=== PATIENT | male | born 1980 | race Caucasian/White ===

== ENCOUNTER 2024-12-01 16:11 | Outpatient (CLI) | payer OTHER, SELFPAY | END 2024-12-01 16:12 | disposition home or self-care (01) | PROVIDERS: Visit Provider Orthopaedic Surgery | DX: M10.9 Gout, unspecified (principal); M25.562 Pain in left knee | CPT/HCPCS: 80053; 84550; 86140; 86200; 86431; 87070; 87075; 87205; 89051; 89060 ==

== ENCOUNTER 2024-12-07 08:29 | Outpatient (CLI) | payer OTHER, SELFPAY | END 2024-12-07 08:30 | disposition home or self-care (01) | PROVIDERS: PCP Internal Medicine; Visit Provider Internal Medicine | DX: Z00.00 Encounter for general adult medical examination without abnormal findings (principal); R53.83 Other fatigue; Z13.6 Encounter for screening for cardiovascular disorders; Z12.5 Encounter for screening for malignant neoplasm of prostate | CPT/HCPCS: 80061; 84443; G0103 ==

== ENCOUNTER 2025-01-09 18:44 | Outpatient (CLI) | payer OTHER, SELFPAY ==
--- NOTE | 2025-01-09 19:00 | MR_ITS ---
[facility] [address] [facility] [address] Phone:?[phone] Fax:?[phone] Referring Physician Information: Zeb Nance M.D. [address] [address] Phone:?[phone] Fax:?[phone] Patient:Magdy Feliciano D.O.B:?1980 Sex:?Male Phone:?[phone] [facility] MRN:?[id number] Exam Date:?01/09/2025 EXAM: MRI of the LEFT SHOULDER, without contrast CLINICAL: Left shoulder injury. Evaluate for rotator cuff tear. COMPARISONS: None available. TECHNICAL: Multiplanar multisequence MRI of the left shoulder was obtained. SEDATION: None. CONTRAST: None. FINDINGS: Rotator cuff: Supraspinatus/Infraspinatus: There is mild to moderate tendinosis of the distal supraspinatus tendon. Moderate partial articular surface tearing involves the anterior distal supraspinatus tendon on coronal series 5 image 11 involving approximately 50% of the tendon thickness with mild partial interstitial and bursal surface tearing involving the remainder of the distal tendon. Very small ganglion cyst noted within the supraspinatus muscle about the myotendinous junction on sagittal series 9 image 13. Infraspinatus tendon and muscle appear unremarkable. Teres minor: No tendinosis, tear or atrophy. Subscapularis: No tendinosis, tear or atrophy. Bursae: Subacromial-subdeltoid: Minimal bursal fluid. Subcoracoid: No significant bursal fluid. Coracoacromial arch: Acromion morphology: Type II. No os acromiale. Acromiohumeral space: Mildly narrowed. Coracohumeral space: Within normal limits. Biceps tendon, long head: No tendinosis, tendon tear or displacement. Glenohumeral joint: No joint effusion. Articular cartilage: Evaluation is relatively limited. Suspect grade 3 chondral loss involving the superior glenoid and adjacent superomedial humeral head as visualized. Capsule: No evidence of capsular thickening or injury. Labrum: There is tearing of the superior labrum posterior to the biceps anchor as seen on coronal series 5 image 14-17. Remainder of the labrum appears intact as visualized on this nonarthrogram exam. No perilabral cyst identified. Bones: No suspicious marrow signal alteration, fracture or dislocation. Acromioclavicular joint: Mild changes of arthrosis. No AC joint injury/widening. IMPRESSION: 1. Mild to moderate tendinosis of the distal supraspinatus tendon. There is moderate partial articular surface tearing of the anterior distal supraspinatus tendon with mild partial tearing of the remainder of the distal supraspinatus tendon. 2. Tearing of the superior labrum. 3. Evaluation of the glenohumeral cartilage is limited. Suspect grade 3 chondral loss involving the superior glenoid and adjacent superomedial humeral head as visualized. 4. Mild AC joint arthrosis. JCZ Electronically signed on 01/10/2025 10:24:00 AM by Jeremy Mccoy D.O.
== END 2025-01-09 18:45 | disposition home or self-care (01) ==
LOC: MRI 18:44
PROVIDERS: PCP Internal Medicine; Visit Provider Orthopaedic Surgery
DX: M25.512 Pain in left shoulder (principal); S49.92XA Unspecified injury of left shoulder and upper arm, initial encounter; M75.102 Unspecified rotator cuff tear or rupture of left shoulder, not specified as traumatic; M19.012 Primary osteoarthritis, left shoulder
CPT/HCPCS: 73221

== ENCOUNTER 2025-01-19 10:18 | Outpatient (CLI) | payer OTHER, SELFPAY ==
--- NOTE | 2025-01-19 11:40 | P.ANES_ITS ---
Anesthesia Charges Start Date/Time Anesthesia Start Date: 01/19/25 Anesthesia Start Time: 11:07 Stop Date/Time Anesthesia Stop Date: 01/19/25 Anesthesia Stop Time: 11:39 Coding CPT Codes CPT Codes: JENNA LWR INTST NDSC NOS - 89297 ([id number]) P2 - PATIENT W/MILD SYST DISEASE, QK - MAGAZINE EDITOR 2-4 CNCRNT ANES PROC, QX - STEEL MANAGER SVC W/ MD MED DIRECTION
--- NOTE | 2025-01-19 11:40 | W.ANESCHARGE ---
Anesthesia Charges Start Date/Time Anesthesia Start Date: 01/19/25 Anesthesia Start Time: 11:07 Stop Date/Time Anesthesia Stop Date: 01/19/25 Anesthesia Stop Time: 11:39 Coding CPT Codes CPT Codes: JENNA LWR INTST NDSC NOS - 44015 ([id number]) P2 - PATIENT W/MILD SYST DISEASE, QK - EMT DRIVER 2-4 CNCRNT ANES PROC, QX - COSMETICS DEMONSTRATOR SVC W/ MD MED DIRECTION
--- NOTE | 2025-01-19 13:11 | P.ANES_ITS ---
Anesthesia Charges Start Date/Time Anesthesia Start Date: 01/19/25 Anesthesia Start Time: 11:07 Stop Date/Time Anesthesia Stop Date: 01/19/25 Anesthesia Stop Time: 11:39 Coding CPT Codes CPT Codes: JENNA LWR INTST NDSC NOS - 17057 ([id number]) P2 - PATIENT W/MILD SYST DISEASE, QK - MANAGER TECHNICAL TRAINING 2-4 CNCRNT ANES PROC, QX - EDUCATION TECHNICIAN SVC W/ MD MED DIRECTION
--- NOTE | 2025-01-19 13:11 | W.ANESCHARGE ---
Anesthesia Charges Start Date/Time Anesthesia Start Date: 01/19/25 Anesthesia Start Time: 11:07 Stop Date/Time Anesthesia Stop Date: 01/19/25 Anesthesia Stop Time: 11:39 Coding CPT Codes CPT Codes: JENNA LWR INTST NDSC NOS - 76225 ([id number]) P2 - PATIENT W/MILD SYST DISEASE, QK - WIRELESS STORE MANAGER 2-4 CNCRNT ANES PROC, QX - UPSTAIRS MAID SVC W/ MD MED DIRECTION
== END 2025-01-19 10:19 | disposition home or self-care (01) ==
LOC: OP CLINIC 10:21
PROVIDERS: PCP Internal Medicine; Visit Provider Surgery
DX: Z12.11 Encounter for screening for malignant neoplasm of colon (principal); Z83.719 Family history of colon polyps, unspecified; D12.0 Benign neoplasm of cecum; D12.2 Benign neoplasm of ascending colon; D12.5 Benign neoplasm of sigmoid colon; D12.8 Benign neoplasm of rectum
CPT/HCPCS: 00811; 00812; 45385; 88305; J2704

== ENCOUNTER 2025-01-30 16:12 | Outpatient (RCR) | payer OTHER, SELFPAY | END 2025-05-30 23:59 | disposition home or self-care (01) | PROVIDERS: PCP Internal Medicine; Visit Provider Orthopaedic Surgery | DX: M67.814 Other specified disorders of tendon, left shoulder (principal); Z51.89 Encounter for other specified aftercare | CPT/HCPCS: 97110; 97161 ==

== ENCOUNTER 2025-03-30 15:05 | Outpatient (CLI) | payer OTHER, SELFPAY | END 2025-03-30 15:06 | disposition home or self-care (01) | LOC: NFLDREF 04-13 01:24 | PROVIDERS: PCP Internal Medicine; Referring Provider Internal Medicine; Visit Provider Internal Medicine | DX: E78.5 Hyperlipidemia, unspecified (principal); R73.9 Hyperglycemia, unspecified; Z13.9 Encounter for screening, unspecified | CPT/HCPCS: 80053; 80061; 82043; 82570 ==

== ENCOUNTER 2025-06-11 11:04 | Emergency (ER) | payer OTHER, SELFPAY ==
[2025-06-11 11:07] VITALS: BP 122/72; PULSE 61; RESP 18; TEMP 37; O2SAT 96
--- NOTE | 2025-06-11 11:18 | ED.GENADULT ---
HPI - General Adult General Time Seen by Provider: 11:18 Date Seen: 06/11/25 Chief complaint: Extremity Pain/Injury, Upper Stated complaint: L wrist injury Time Seen by Provider: 06/11/25 11:07 Source: patient and RN notes reviewed Mode of arrival: ambulatory Limitations: no limitations History of Present Illness HPI narrative: This 44-year-old male is coming in with left wrist pain over the last week. He just reached under the car seat to grab something, started with pain. He has not had a history of definite injury like previous sprain or fracture. There this for quite some time where he would move her do something with the risk, would have pain for couple days. He has a neoprene wrap that go home and around the wrist that he uses, does seem to help although it made his thumb go numb this wheezing in the hand. There is some mild swelling. He has tried Tylenol and ibuprofen with out improvement. He does go to the [place], has had a history of gout in his feet, his uric acid has been elevated. He has colchicine at home to take for gout, did take a dose this morning. He admits that there has not been the level of swelling and redness in the wrist joint that he has had in his feet. This does not feel necessarily like gout. His believes there is little swelling in the wrist. Any movement of the wrist precipitates pain. He has had no fevers or chills. He does have allopurinol at home but has not started it. Related Data Home Medications ?Medication ?Instructions ?Recorded ?Confirmed No Known Home Medications 06/11/25 06/11/25 Allergies Allergy/AdvReac Type Severity Reaction Status Date / Time No Known Drug Allergies Allergy Verified 06/11/25 11:13 Review of Systems Narrative: As per HPI. [facility] Medical History Cryptorchidism ?Q53.9 - Undescended testicle, unspecified (ICD-10) Elevated blood sugar ?R73.9 - Hyperglycemia, unspecified (ICD-10) Gout ?M10.9 - Gout, unspecified (ICD-10) Screening due ?Z13.9 - Encounter for screening, unspecified (ICD-10) Fatigue ?R53.83 - Other fatigue (ICD-10) Surgical History H/O vasectomy ?Z98.52 - Vasectomy status (ICD-10) Social History What is your current living situation?: I presently have a place to live Problems where you live: no known problems In the past 12 months, utilities in danger of being shut off: no In past 12 months, lack of transportation kept you from medical appts, meetings, work, or getting things needed for daily living: no In the past 12 mos, have been you worried that your food would run out before you had money to buy more?: never true In the past 12 mos, the food you bought just didn't last and you didn't have money to buy more?: never true How often does anyone, including family, friends and others, physically hurt you: never How often does anyone, including family, friends and others, insult or talk down to you: never How often does anyone, including family, friends and others, threaten you with harm: never How often does anyone, including family, friends and others, scream or curse at you: never Exam Const: Vital Signs, click to edit/add: Vital Signs - 24 hr 06/11/25 11:07 Temperature 98.6 F Pulse Rate [Right Pulse Oximeter] 61 Respiratory Rate 18 Blood Pressure [Ri ght Upper Arm] 122/72 Pulse Oximetry 96 Oxygen Delivery Me thod Room Air This 44-year-old male is alert, interactive, no apparent distress. He has an ice pack on his left wrist. On inspection, there is some mild generalized swelling over the left wrist when I compare to the right. He has some tenderness globally in the center of the left wrist both on the dorsal and the ventral surface. He has a good radial pulse. Range of motion with flexion, extension, ulnar and radial deviation cause discomfort, he has limited range of motion. The joint is not warm, there is no erythema. He can fully flex and extend his fingers but it does cause some pain into the wrist area. There is no swelling of the fingers or the hand. Normal capillary refill and warmth of the hand and fingers, normal sensation. He has no pain about the elbow or forearm. Documenting provider has reviewed patient's vital signs: yes Course Course ED Course: This 44-year-old male is having left wrist pain, does have a history of gout. He and his both agree that the wrist just does not seem to have the swelling and erythema an inflammatory response I would expect with gout. I do think it is reasonable to do the colchicine. We are going to x-ray just to look at underlying architecture. I did discuss cartilaginous tears within the wrist which I do wonder if he might have. We will x-ray, try a cock-up wrist splint for comfort. I do not think we need to recheck blood work given the history he has given me. He would like to follow up with Orthopedics locally if needed, will give him the number to our orthopedist on discharge. Reevaluation(s) Time of Reevaluation #1: 12:24 Reevaluation #1: Did review with patient that his x-ray images appear normal on the wrist. We are going to try a cock-up wrist splint here to see if it provides him with comfort. We did discuss pain management at bedtime, hopefully with the wrist splint he will have improved pain control as this will stabilize the wrist. We did discuss using something at bedtime to help with sleep until he can follow up with Orthopedics. He has tolerated Percocet and Vicodin. Did discuss use of oxycodone as I like the oxycodone so that people can still use Tylenol and ibuprofen without any concerns. If using Percocet or Vicodin, need to observe limits of Tylenol and I feel it is much easier to potentially overdose on the Tylenol. Vital Signs Vital signs: Initial Vital Signs Temperature 98.6 F 06/11/25 11:07 Temperature Source Temporal Artery Scan 06/11/25 11:07 Pulse Rate 61 06/11/25 11:07 Pulse Rhythm Regular 06/11/25 11:07 Pulse Strength 3+ Normal 06/11/25 11:07 Respiratory Rate 18 06/11/25 11:07 Blood Pressure 122/72 06/11/25 11:07 Blood Pressure Mean 88 06/11/25 11:07 Blood Pressure Position Sitting 06/11/25 11:07 Pulse Oximetry 96 06/11/25 11:07 Oxygen Delivery Method Room Air 06/11/25 11:07 Vital Signs Temperature 98.6 F 06/11/25 11:07 Pulse Rate 61 06/11/25 11:07 Respiratory Rate 18 06/11/25 11:07 Blood Pressure 122/72 06/11/25 11:07 Pulse Oximetry 96 06/11/25 11:07 Oxygen Delivery Method Room Air 06/11/25 11:07 Temperature 98.6 F 06/11/25 11:07 Pulse Rate 61 06/11/25 11:07 Respiratory Rate 18 06/11/25 11:07 Blood Pressure 122/72 06/11/25 11:07 Pulse Oximetry 96 06/11/25 11:07 Oxygen Delivery Method Room Air 06/11/25 11:07 Medical Decision Making Imaging Data XR left wrist: Attestation: I have reviewed the pertinent imaging results. My impression: Did visualize his wrist x-rays, do not appreciate any acute pathology. Radiology reading reviewed. Radiologist's impression: Patient: KATHRIN CRISOSTOMO Facility:?[facility] Patient ID:?[id number] Site Patient ID:?[id number]. Site :?1980 Study:?XRay-Extremity Left 3V-06/11/2025 11:39:37 AM Ordering Physician:?Swati Huertas Final Report: INDICATION: Wrist pain, no injury TECHNIQUE: Three views left wrist COMPARISON: None. FINDINGS: No acute fracture or dislocation. Joint spaces are maintained. No erosions or chondrocalcinosis. IMPRESSION: Normal radiographs. Dictated by Jon Bettencourt MD @ 06/11/2025 12:06:54 PM (Electronic Signature) Discharge Plan Discharge Clinical Impression: Acute wrist pain Qualifiers: Laterality: left Qualified Code(s): M25.532 - Pain in left wrist Patient Disposition: Home, Self-Care Condition: Stable Instructions: Wrist Injury (ED) Additional Instructions: We do not have a general wrist pain handout, have provided you a wrist injury handout. I would use the wrist splint for immobilization and stabilization of this wrist. Can use Tylenol 1000 mg 3 times a day baseline for pain, supplement with ibuprofen 600 mg up to 4 times a day as needed for extra pain control. Have written for oxycodone to be used at bedtime or if really needed for severe pain during the day. You cannot drive or operate machinery within 6-8 hours of taking this medicine. This medicine can also be constipating, may need to use MiraLax and or senna well on the oxycodone to prevent this. Have written for oxycodone from [facility], 5 mg at bedtime as needed, 4 tablets provided. Please call the orthopedic office tomorrow morning to get scheduled for follow-up. The phone number is [phone]. I would have you take the colchicine as normally prescribed for gout, if there is no improvement within 24 hours, I really do believe that this is definitely unlikely to be gout in that circumstance. If the wrist pain totally clears up with use of the colchicine, may not need further evaluation with Orthopedics as it certainly could be gout if the colchicine improves symptoms. I do wonder if you could have a cartilaginous tear with in the wrist bones, this can be difficult to diagnose and often presents with recurrent wrist pain. Thus, my recommendation for follow-up with orthopedics. Activity Level: Activity as Tolerated Prescriptions: No Action No Known Home Medications Follow Up/Referrals: Brannon Azar MD [Primary Care Provider, Internal Medicine] Stand Alone Forms: [address] [employer] Info Instructions
--- NOTE | 2025-06-11 11:27 | CRLHL7_ITS ---
For Patients: As a result of the Cures Act, medical imaging exams and procedure reports are released immediately into your electronic medical record. You may view this report before your referring provider. If you have questions, please contact your health care provider. INDICATION: Wrist pain, no injury TECHNIQUE: Three views left wrist COMPARISON: None. FINDINGS: No acute fracture or dislocation. Joint spaces are maintained. No erosions or chondrocalcinosis. IMPRESSION: Normal radiographs. Dictated by Jon Bettencourt MD @ 06/11/2025 12:06:54 PM (Electronically Signed)
== END 2025-06-11 12:47 | disposition home or self-care (01) ==
PROVIDERS: Emergency Provider Family Medicine; PCP Internal Medicine
DX: M25.532 Pain in left wrist (principal); Z79.899 Other long term (current) drug therapy
CPT/HCPCS: 73110; 99283; 99284